=== PATIENT | female | born 1950 | race Caucasian/White ===

== ENCOUNTER 2021-10-22 09:26 | Emergency (ER) | payer OTHER ==
[~2021-10-22] VITALS: Ht 165.1 cm; Wt 72.6 kg
[2021-10-22] MEDS ORDERED: COZAAR100 MG (09:43)
[2021-10-22] MEDS ORDERED: GLIPIZIDE XL10 MG (09:43)
[2021-10-22] MEDS ORDERED: CLEOCIN HCL300 MG PO (10:27)
== END 2021-10-22 13:12 | disposition home or self-care (01) ==
LOC: ER 09:26
DX: L03.213 Periorbital cellulitis (principal); I10 Essential (primary) hypertension; E11.9 Type 2 diabetes mellitus without complications; Z79.84 Long term (current) use of oral hypoglycemic drugs

== ENCOUNTER 2022-04-20 12:06 | Emergency (ER) | payer OTHER ==
[~2022-04-20] VITALS: Ht 157.5 cm; Wt 68.0 kg
[~2022-04-20 12:06] MED LIST: CLEOCIN HCL300 MG PO; COZAAR100 MG; GLIPIZIDE XL10 MG
[2022-04-20] MEDS ORDERED: METFORMIN HCL500 MG PO (12:50)
[2022-04-20] MEDS ORDERED: ATORVASTATIN CA20 MG PO (12:51)
== END 2022-04-20 15:45 | disposition home or self-care (01) ==
LOC: ER 12:06
DX: S29.9XXA Unspecified injury of thorax, initial encounter (principal); V49.9XXA Car occupant (driver) (passenger) injured in unspecified traffic accident, initial encounter; Y93.9 Activity, unspecified; Y92.413 State road as the place of occurrence of the external cause; Z88.0 Allergy status to penicillin; L03.213 Periorbital cellulitis